=== PATIENT | female | born 1940 | race Caucasian/White ===

== ENCOUNTER → 2016-10-10 | Outpatient (CLI) | payer MEDICARE, BC, OTHER ==
[~2016-10-10] MED LIST: ALBU83IN INH; ASPI81TA85 PO; CALCTAB28 PO; CHLO125TA PO; DEXA4TA PO; DULE200A INH; GASTROGRAFIN SOLUTION 30ML (Q9963) As Ordered ONE; GILO1TAB2 PO; IMOD2TAB16 PO; ISOVUE-370 76% 100ML VIAL (Q9967) As Ordered ONE; K-TA10TA2 PO; KLOR1TAB69 PO; LASI40TA PO; LEVO500T32 PO; MOME50SP; NYST50SS SS; OSTETAB3 PO; VITA100037 PO; ZOFR20TA PO; [UNRECOGNIZED DRUG - OTHER]
--- NOTE | 2016-10-10 12:41 | REP ---
Clinical: Metastatic lung cancer. Technique: Axial contrast enhanced images from the lung bases to the pubic symphysis using oral and 100 ml Isovue 370 intravenous contrast material with precontrast and delayed images of the abdomen as well as coronal and sagittal re-formations. Comparison: None. Findings: Lung bases demonstrate multiloculated bilateral pleural effusions (right greater than left, right basilar atelectasis, and ill-defined left lower lobe consolidations possibly related to known malignancy. Visualized heart and pericardium are grossly normal. Liver, spleen, pancreas, gallbladder, bilateral adrenal glands are normal. Kidneys demonstrate cortical atrophic changes and bilateral cysts including left parapelvic cysts up to 2.7 cm. The small and large bowel is without obstruction or acute inflammatory process. Pelvis demonstrates normal bladder and age related uterus/adnexa. No ascites. No pneumoperitoneum. No intraperitoneal or retroperitoneal adenopathy. Musculoskeletal structures demonstrate age-related degenerative changes and scattered sclerotic foci consistent with osseous metastatic disease including 2.1 cm sclerotic focus in the L1 vertebral body and 2 cm lesion in the right hemisacrum. Impression: 1. Osseous metastatic disease. 2. Bilateral renal cysts. 3. Lung bases demonstrate multiloculated pleural effusions basilar atelectasis and ill-defined left lower lobe consolidations likely related to malignancy. Signed by Juliano Cid MD 10/10/2016 12:32 P
--- NOTE | 2016-10-10 12:50 | REP ---
Clinical: Metastatic lung cancer. Technique: Axial contrast enhanced images from the thoracic inlet to the upper abdomen using 100 ml Isovue 370 intravenous contrast material with coronal and sagittal re-formations. Comparison: 01/01/2015. Findings: Moderate right and small left irregular and partially loculated pleural effusions are identified with enhancing rind along with scattered atelectasis, small right lower lobe consolidations, and moderate left upper lobe perihilar and left lower lobe consolidations, diffuse reticulonodular interstitial changes primarily involving the left lung and right lower lobe, a small pericardial effusion, and left axillary adenopathy. Findings are compatible with active malignancy and metastatic disease. Left axillary adenopathy has increased from prior examination with lymph nodes measuring up to 2.3 cm maximal diameter previously measuring up to approximately 1.8 cm maximal diameter. Surrounding musculoskeletal structures demonstrate scattered sclerotic osseous lesions compatible with osseous metastatic disease which are similar to prior examination and appear relatively stable. Impression: Bilateral pleuroparenchymal changes and increased left axillary adenopathy concerning for active malignancy and metastatic disease. Signed by Juliano Cid MD 10/10/2016 12:42 P
== END ==
LOC: M RAD 10:45
PROVIDERS: ATTEND Internal Medicine Medical Oncology
DX: C34.90 Malignant neoplasm of unspecified part of unspecified bronchus or lung (principal)
CPT/HCPCS: 71260; 74178; Q9963; Q9967